=== PATIENT | female | born 1995 | race American Indian/Alaskan Native ===

== ENCOUNTER 2018-07-30 18:18 | Emergency (ER) | payer OTHER ==
--- NOTE | 2018-07-30 21:35 | XRay Report ---
FINAL REPORT EXAM: XR CHEST ROUTINE 2V HISTORY: productive cough TECHNIQUE: Frontal and lateral chest x-ray. PRIORS: None. FINDINGS: Cardiac and mediastinal silhouette within normal limits. Lungs are normally expanded and grossly clear. No apparent pleural effusion or pneumothorax. Bony thorax grossly unremarkable. IMPRESSION: 1. No acute consolidation.
--- NOTE | 2018-07-30 21:39 | Emergency Department Report ---
ED General Adult HPI - General Chief complaint: Neck Pain/Injury Stated complaint: SWOLLEN LUMP UNDER CHIN Time Seen by Provider: 07/30/18 21:31 Source: patient Mode of arrival: Ambulatory Limitations: No Limitations - History of Present Illness Initial comments: Bertha is a healthy 23 yo female who presents with inflamed lymph nodes under her chin for one day. The left side is larger than right. Minimal tenderness. No fever, no URI symptoms. No other symptoms. - Related Data Allergies Allergy/AdvReac Type Severity Reaction Status Date / Time No Known Allergies Allergy Unverified 07/30/18 19:23 ED Review of Systems ROS: Stated complaint: SWOLLEN LUMP UNDER CHIN Other details as noted in HPI Constitutional: denies: fever, malaise ENT: denies: ear pain, throat pain, congestion Respiratory: denies: cough Cardiovascular: denies: chest pain Gastrointestinal: denies: abdominal pain ED Past Medical Hx - Past Medical History Previous Medical History?: No - Surgical History Past Surgical History?: No - Social History Smoking Status: Current Every Day Smoker ED Physical Exam - General Limitations: No Limitations, Language Barrier General appearance: alert, in no apparent distress - Head Head exam: Present: atraumatic, normocephalic - Eye Eye exam: Present: normal appearance - ENT ENT exam: Present: normal orophraynx - Neck Neck exam: Present: lymphadenopathy (3 cm submandiubular left sided lymph node) - Respiratory Respiratory exam: Absent: respiratory distress - Neurological Exam Neurological exam: Present: alert, oriented X3 - Psychiatric Psychiatric exam: Present: normal affect, normal mood - Skin Skin exam: Present: warm, dry, intact, normal color ED Course Vital Signs 07/30/18 19:14 Temperature 98.7 F Pulse Rate 55 L Respiratory 20 Rate Blood Pressure 125/82 O2 Sat by Pulse 100 Oximetry ED Medical Decision Making - Medical Decision Making Bertha presents with enlarged lymph node: DDx: lymphadenitis vs mass Patient understands to have the area examined if the mass stays persistently enlarged. Critical care attestation.: If time is entered above; I have spent that time in minutes in the direct care of this critically ill patient, excluding procedure time. ED Disposition Clinical Impression: Lymphadenitis Disposition: DC- TO HOME OR SELFCARE Is pt being admited?: No Does the pt Need Aspirin: No Condition: Stable Instructions: Lymphadenopathy (ED) Additional Instructions: Please see a physician or return to ER if the lymph node does not become normal size within the next 2 weeks. Referrals: [facility] [Outside] - 3-5 Days
[2018-07-30 21:49] VITALS: BP 122/72
== END 2018-07-30 21:47 | disposition home or self-care (01) ==
LOC: ED 18:18
DX: I88.8 Other nonspecific lymphadenitis (principal); F17.200 Nicotine dependence, unspecified, uncomplicated
CPT/HCPCS: 71046; 99283